=== PATIENT | female | born 1975 | race Caucasian/White ===

== ENCOUNTER 2019-06-10 16:01 | Inpatient (IN) | payer MEDICAID ==
[~2019-06-10] VITALS: Ht 167.6 cm; Wt 112.2 kg
[2019-06-10] MEDS ORDERED: TRAZ-252 PO (17:08)
[2019-06-10] MEDS ORDERED: PROZ10 PO (17:08)
[2019-06-10] MEDS ORDERED: LITH300C3 PO (17:08)
[2019-06-10 17:15] LABS: BASOPHILS % (AUTO) 0.9 % (0.0-2.0); EOSINOPHILS % (AUTO) 13.9 % (1.0-6.0); HEMATOCRIT 42.9 % (36-46); HEMOGLOBIN 14.7 g/dL (12.0-16.0); MEAN CORPUSCULAR HEMOGLOBIN 31.1 pg (26.0-34.0); MEAN CORPUSCULAR HGB CONC 34.2 G/dL (31.0-37.0); MEAN CORPUSCULAR VOLUME 91 fL (80-100); MONOCYTES # (AUTO) 0.6 K/uL (0.1-1.0); MONOCYTES % (AUTO) 6.3 % (2.0-9.0); NEUTROPHILS # (AUTO) 5.1 K/uL (1.8-7.7); NEUTROPHILS % (AUTO) 56.9 % (40.0-70.0); PLATELET COUNT (AUTO) 290 K/uL (150-450); RED BLOOD CELL COUNT(AUTO) 4.71 MIL/uL (4.00-5.20); RED CELL DISTRIBUTION WIDTH 13.5 % (11.5-14.5)
[2019-06-10 17:31] LABS: ANION GAP 13 mmol/L (8-16); CALCIUM, TOTAL 9.7 mg/dL (8.8-10.5); CARBON DIOXIDE 24 mmol/L (22-29); CHLORIDE 104 mmol/L (98-107); CREATININE 0.92 mg/dL (0.60-1.30); GLOMERULAR FILTR. RATE CALC > 60 mL/min (>60); GLUCOSE,RANDOM 100 mg/dL (70-110); POTASSIUM 4.1 mmol/L (3.5-5.1); SODIUM SERUM 141 mmol/L (136-145); UREA NITROGEN, BLOOD 17 mg/dL (7-18)
[2019-06-10 17:37] LABS: ALANINE AMINOTRANSFERASE 36 U/L (12-78); ALBUMIN 4.1 g/dL (3.4-5.0); ALKALINE PHOSPHATASE 51 U/L (46-116); ASPARTATE AMINOTRANSFERASE 30 U/L (15-37); BILIRUBIN,TOTAL 0.3 mg/dL (0.1-1.0); TOTAL PROTEIN, SERUM 7.4 g/dL (6.4-8.2)
[2019-06-10 18:03] LABS: HCG,QUANTITATIVE < 1 mIU/mL (0-6)
[2019-06-10] MEDS ORDERED: IBUPROFEN 600 MG TABLET PO ONE (18:30)
[2019-06-10] MEDS ORDERED: ALBUTEROL SULFATE HFA 90 MCG/PUFF 8 GM INHALER IH PRN (18:30)
[2019-06-10] MEDS ORDERED: LORazepam 2 MG TABLET PO PRN (19:00)
[2019-06-10] MEDS ORDERED: GuaiFENesin/D-METHORPHAN [SUGAR-FREE] 200-20MG/10 ML SYRUP UDCUP PO ONE (19:00)
[2019-06-10] MEDS ORDERED: ACETAMINOPHEN 500 MG TABLET PO ONE (19:00)
[2019-06-10] MEDS ORDERED: ZOLPIDEM TARTRATE 10 MG TABLET PO PRN (19:00)
[2019-06-10] MEDS ORDERED: HALOPERIDOL 5 MG TABLET PO PRN (19:00)
[2019-06-10] MEDS ORDERED: LORazepam 2 MG TABLET PO ONE (19:00)
[2019-06-10] MEDS ORDERED: ONDANSETRON HCL 4 MG TABLET PO PRN (21:00)
[2019-06-10] MEDS ORDERED: NICOTINE 14 MG/24 HOUR PATCH TD PRN (21:00)
[2019-06-10] MEDS ORDERED: PETROLATUM,WHITE 28 GM JELLY TP PRN (21:00)
[2019-06-10] MEDS ORDERED: CloNIDine HCL 0.1 MG TABLET PO PRN (21:00)
[2019-06-10] MEDS ORDERED: MAG HYDROX/AL HYDROX/SIMETH ES 30 ML SUSPENSION UDCUP PO PRN (21:00)
[2019-06-10] MEDS ORDERED: DOCUSATE SODIUM 100 MG CAPSULE PO PRN (21:00)
[2019-06-10] MEDS ORDERED: LOPERAMIDE HCL 2 MG CAPSULE PO PRN (21:00)
[2019-06-10] MEDS ORDERED: MAGNESIUM HYDROXIDE SUSPENSION 30 ML UDCUP PO PRN (21:00)
[2019-06-10 21:44] VITALS: BP 121/97
[2019-06-10] MEDS: TraZODone HCL 100 MG TABLET PO SCH (22:32)
[2019-06-10] MEDS: GuaiFENesin/D-METHORPHAN [SUGAR-FREE] 200-20MG/10 ML SYRUP UDCUP PO PRN (22:34)
[2019-06-11] MEDS: ACETAMINOPHEN 325 MG TABLET PO PRN ×2 (04:02→10:47)
[2019-06-11] MEDS: GuaiFENesin/D-METHORPHAN [SUGAR-FREE] 200-20MG/10 ML SYRUP UDCUP PO PRN ×3 (04:03→17:34)
[2019-06-11] MEDS: ALBUTEROL SULFATE HFA 90 MCG/PUFF 8 GM INHALER IH PRN ×3 (04:35→15:50)
[2019-06-11 04:48] VITALS: BP 104/71
[2019-06-11 08:30] VITALS: BP 103/61
[2019-06-11] MEDS: FLUoxetine HCL 20 MG CAPSULE PO SCH ×2 (08:43→16:01)
[2019-06-11 09:22] LABS: CHOL/HDL RATIO 4.8 (3.9-5.7); FREE T4 (FREE THYROXINE) 0.77 ng/dL (0.76-1.46); THYROID STIMULATING HORMONE 1.99 uIU/mL (0.36-3.74)
[2019-06-11] MEDS: IBUPROFEN 400 MG TABLET PO PRN (10:49)
[2019-06-11] MEDS ORDERED: BENZOCAINE/MENTHOL LOZENGE PO PRN (12:15)
[2019-06-11] MEDS ORDERED: LORATADINE 10 MG TABLET PO PRN (12:15)
[2019-06-11] MEDS ORDERED: FLUO-191 PO (12:20)
[2019-06-11] MEDS ORDERED: TRAZ-257 PO (12:21)
[2019-06-11] MEDS ORDERED: LITH300C3 PO (12:22)
[2019-06-11] MEDS: BENZONATATE 100 MG CAPSULE PO SCH (18:00)
[2019-06-11 18:14] VITALS: BP 126/84
[2019-06-11 18:25] LABS: INFLUENZA TYPE A NEGATIVE FOR TYPE A (NEGATIVE); INFLUENZA TYPE B NEGATIVE FOR TYPE B (NEGATIVE)
[2019-06-11] MEDS: FLUTICASONE/VILANTEROL 200-25 MCG/INH INHALER [14] IH SCH (20:11)
[2019-06-11] MEDS: TraZODone HCL 100 MG TABLET PO SCH (20:11)
[2019-06-11] MEDS: LITHIUM CARBONATE 300 MG CAPSULE PO SCH (20:12)
[2019-06-11 20:18] LABS: APPEARANCE,URINE CLEAR (CLEAR); BILIRUBIN,URINE NEGATIVE (NEGATIVE); GLUCOSE, URINE (UA) NEGATIVE (NEGATIVE); KETONES,URINE NEGATIVE (NEGATIVE); LEUKOCYTE ESTERASE ,URINE NEGATIVE (NEGATIVE); NITRATE,URINE NEGATIVE (NEGATIVE); OCCULT BLOOD,URINE NEGATIVE (NEGATIVE); PROTEIN,URINE NEGATIVE (NEGATIVE); UROBILINOGEN,URINE 0.2 mg/dL (<=1.0)
[2019-06-11 20:26] LABS: AMPHET/METH SCREEN,URINE NEGATIVE (NEGATIVE); BARBITURATE SCREEN, URINE NEGATIVE (NEGATIVE); BENZODIAZEPINES SCREEN,URINE NEGATIVE (NEGATIVE); CANNABINOID SCREEN,URINE NEGATIVE (NEGATIVE); COCAINE SCREEN,URINE NEGATIVE (NEGATIVE); METHADONE SCREEN, URINE NEGATIVE (NEGATIVE); OPIATE SCREEN,URINE NEGATIVE (NEGATIVE)
[2019-06-11 20:29] LABS: PHENCYCLIDINE SCREEN,URINE NEGATIVE (NEGATIVE)
[2019-06-12 08:41] VITALS: BP 92/63
[2019-06-12] MEDS: BENZONATATE 100 MG CAPSULE PO SCH ×3 (09:57→16:39)
[2019-06-12] MEDS: FLUoxetine HCL 20 MG CAPSULE PO SCH ×2 (09:57→16:39)
[2019-06-12] MEDS: PredniSONE 20 MG TABLET PO SCH (09:57)
[2019-06-12] MEDS: IBUPROFEN 400 MG TABLET PO PRN ×2 (10:04→18:54)
[2019-06-12 16:36] VITALS: BP 104/59
[2019-06-12] MEDS: GuaiFENesin/D-METHORPHAN [SUGAR-FREE] 200-20MG/10 ML SYRUP UDCUP PO PRN (16:39)
[2019-06-12] MEDS ORDERED: 0.9% SODIUM CHLORIDE 5 ML NEB SOLUTION NEB ONE (19:30)
[2019-06-12] MEDS: ALBUTEROL SULFATE 2.5 MG/0.5 ML NEB SOLUTION NEB PRN (19:34)
[2019-06-12] MEDS: LITHIUM CARBONATE 300 MG CAPSULE PO SCH (20:13)
[2019-06-12] MEDS: TraZODone HCL 100 MG TABLET PO SCH (20:13)
[2019-06-12] MEDS: FLUTICASONE/VILANTEROL 200-25 MCG/INH INHALER [14] IH SCH (20:13)
[2019-06-13 08:16] VITALS: BP 114/52
[2019-06-13] MEDS: BENZONATATE 100 MG CAPSULE PO SCH ×2 (08:57→12:41)
[2019-06-13] MEDS: FLUoxetine HCL 20 MG CAPSULE PO SCH (08:58)
[2019-06-13] MEDS: PredniSONE 20 MG TABLET PO SCH (08:58)
[2019-06-13 09:01] VITALS: BP 98/59
[2019-06-13] MEDS: GuaiFENesin/D-METHORPHAN [SUGAR-FREE] 200-20MG/10 ML SYRUP UDCUP PO PRN (09:01)
[2019-06-13] MEDS: IBUPROFEN 400 MG TABLET PO PRN (09:01)
[2019-06-13] MEDS: ALBUTEROL SULFATE 2.5 MG/0.5 ML NEB SOLUTION NEB PRN (09:04)
[2019-06-13] MEDS ORDERED: FLUO40CA7 PO (10:58)
[2019-06-13] MEDS ORDERED: LITH300C3 PO (10:59)
[2019-06-13] MEDS ORDERED: BENZ-51 PO (11:51)
[2019-06-13] MEDS ORDERED: FLUT1BLS IH (11:51)
[2019-06-13] MEDS ORDERED: PRED5 PO (11:54)
[2019-06-14] MEDS ORDERED: FLUoxetine HCL 20 MG CAPSULE PO SCH (09:00)
== END 2019-06-13 13:00 | disposition home or self-care (01) | DRG 885 ==
LOC: EMS 16:02 → 3EI 20:30
PROVIDERS: ADMIT Psychiatry & Neurology Psychiatry; ATTEND Psychiatry & Neurology Psychiatry
DX: F33.2 Major depressive disorder, recurrent severe without psychotic features (principal); R45.851 Suicidal ideations; J44.9 Chronic obstructive pulmonary disease, unspecified; G89.29 Other chronic pain; Z91.5 Personal history of self-harm; Z79.899 Other long term (current) drug therapy; J06.9 Acute upper respiratory infection, unspecified; M54.5 Low back pain; R10.13 Epigastric pain
CPT/HCPCS: 80307; 84439; 84443; 87804; 94640; G0480; J3535

== ENCOUNTER 2022-12-23 12:11 | Emergency (ER) | payer MEDICAID ==
[~2022-12-23] VITALS: Ht 167.6 cm; Wt 76.0 kg
[~2022-12-23 12:11] MED LIST: BENZ-227 PO; FLUO40CA7 PO; FLUT1BLS IH; LITH300C3 PO; PRED-549 PO; TRAZ-257 PO
[2022-12-23 12:13] VITALS: BP 112/79; PULSE 100; RESP 18; TEMP 98.3
[2022-12-23] MEDS ORDERED: GLUCAGON,HUMAN RECOMBINANT 1 MG VIAL IVP ONE (12:30)
[2022-12-23] MEDS ORDERED: ONDANSETRON HCL 4 MG/2 ML VIAL IVP ONE (12:30)
== END 2022-12-23 15:13 | disposition home or self-care (01) ==
LOC: EMS 12:11
DX: K22.2 Esophageal obstruction (principal); J44.9 Chronic obstructive pulmonary disease, unspecified; Z79.899 Other long term (current) drug therapy
CPT/HCPCS: 99284; 96374; 71045; 96375; J1610; J2405